=== PATIENT | male | born 1985 | race African-American/Black ===

== ENCOUNTER 2021-04-17 15:59 | Emergency (ER) | payer BC, SELFPAY ==
[2021-04-17 16:39] VITALS: BP 121/72; PULSE 58; RESP 18; TEMP 37.1; O2SAT 100; BMI 25.1
--- NOTE | 2021-04-17 18:49 | ED_ITS ---
HPI - Eye Problem General Chief complaint: Eye Problems Stated complaint: eye pain Time Seen by Provider: 04/17/21 18:49 Source: patient Mode of arrival: ambulatory Limitations: no limitations History of Present Illness HPI Narrative: 36-year-old male with a 3 day history of bilateral red watery eyes. Patient feels pressure in his eyes when he bends down. No headache, no pain with EOMs, no vomiting, no photophobia, no foreign body sensation, no eye trauma, no glasses, no contacts, no itchy eyes. Patient has been using Claritin and antihistamine [id number] eyedrops, it is not helping. 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 chief complaint: eye redness Onset (ago): day(s) (3) Onset description: gradual Duration: constant Location: both eyes Eye Symptoms: redness and pain Related Data Previous Rx's Medication Instructions Recorded erythromycin 5 mg/gram (0.5 %) eye 0.5 inch OPHTHALMIC (EYE) QID 5 04/17/21 ointment Days #3.5 g Allergies Allergy/AdvReac Type Severity Reaction Status Date / Time No Known Allergies Allergy Verified 04/17/21 16:39 Review of Systems Constitutional: Constitutional: Denies body ache(s), Denies chills, Denies fatigue, Denies fever(s), Denies headache(s), Denies malaise and Denies weakness Eyes: Eyes: Reports as per HPI, Denies change in vision, Denies diplopia, Reports dry eyes, Reports irritation, Denies itchy eyes, Denies loss of vision, Denies eye pain, Denies requires corrective lenses, Denies seeing flashes, Denies photophobia, Denies spots in vision and Denies tunnel vision ENT: Denies vertigo, Denies dizziness, Denies otalgia, Denies headache(s), Denies mouth pain, Denies post nasal drip, Denies sinus pain, Denies sinus pressure, Denies sore throat and Denies throat swelling Cardiovascular: Cardiovascular: Denies chest pain, Denies syncope, Denies leg edema, Denies lightheadedness, Denies Loss of Consciousness, Denies palpitations and Denies dyspnea Respiratory: Respiratory: Denies chest congestion, Denies cough and Denies dyspnea Gastrointestinal: Gastrointestinal: Reports abdominal pain, Denies hematochezia, Denies constipation, Denies diarrhea and Denies vomiting Neurologic: Denies confusion, Denies vertigo, Denies dizziness, Denies syncope, Denies headache(s), Denies loss of vision and Denies weakness Psychiatric: Psychiatric: Denies confusion Endocrine: Endocrine: Denies fatigue and Denies palpitations Allergic/Immunologic: Allergic/Immunologic: Denies itchy eyes and Denies throat swelling PMFSH Social History Social History Advance Directives: No Advance Directives Information Provided: No Physical Exam Vital Signs: Vital Signs: Last Vital Signs Temp 98.7 F 04/17/21 16:39 Pulse 58 04/17/21 16:39 Resp 18 04/17/21 16:39 BP 121/72 04/17/21 16:39 Pulse Ox 100 04/17/21 16:39 Body Mass Index 25.1 Const: General: healthy appearing, comfortable, no acute distress, alert and awake; No confusion Nutritional Appearance: well nourished Orientation/consciousness: patient oriented x3 and No confusion Limitations: no limitations HENMT: Head: Yes normal to inspection, Yes normocephalic and Yes atraumatic Ears: hearing grossly normal bilaterally Face and sinus: Yes normal facial exam Mouth: Normal oral and palatal mucosa present Throat: Yes posterior oropharynx normal Eyes: Other: Injected conjunctiva bilaterally No ciliary flush, no purulent discharge, no pain with EOMs, no hyphema, no hazy cornea, pupils react to light. IOP with tonopen shows 17-21 in right eye, and 21-23 in left eye. Fluorescein stain shows no corneal abrasion, no Sidel sign Visual Marshall: n ormal visual marshall by confrontation Alignment and Position: alignment normal Periorbital: periorbital findings normal Eyelids: Yes eyelids normal Conjunctivae: conjunctival abnormal bilateral conjunctival injection diffuse and diffuse Corneas: corneas normal and fluorescein used Pupils: Equal, round and reactive pupils present, Pupils normal by confrontation and Pupil accommodation reflex normal EOM: EOMs intact bilaterally Direct Ophthalmoscopy: normal light reflex, no photophobia and No photophobia Neck: Neck: Yes full ROM, Yes no meningeal signs and Yes supple Resp: Effort & Inspection: normal respiratory effort Auscultation: clear to auscultation bilaterally, no crackles, no rales, no rhonchi and no wheezes Cardio: Rate: regular rate Rhythm: regular rhythm Heart sounds: S1 normal heart sound present and S2 normal heart sound present Skin: General skin exam: no rashes or lesions noted Neuro: General: patient oriented x3, tone normal, moves all extremities, no meningeal signs, no focal motor deficits and No confusion Cranial nerves: Yes Equal, round and reactive pupils present Course Course Course Narrative: 36-year-old male with 3 days of injected conjunctiva. On exam, injected conjunctiva bilaterally with no ciliary flush, no purulent discharge, no pain with EOMs, no hyphema, no hazy cornea, pupils react to light. IOP with tonopen shows 17-21 in right eye, and 21-23 in left eye. Fluorescein stain shows no corneal abrasion, no Sidel sign Erythromycin ointment, follow-up with mentally impaired teacher, referred to Ophthalmology, gave patient return precautions. Discharge Plan Discharge Clinical Impression: Conjunctivitis Qualifiers: Conjunctivitis type: acute Acute conjunctivitis type: unspecified Laterality: bilateral Qualified Code(s): H10.33 - Unspecified acute conjunctivitis, bilateral Patient Disposition: Home, Self-Care Instructions: Conjunctivitis (ED) Additional Instructions: Please return to the emergency room if you have sudden blurry vision, vision loss, headaches, vomiting, fevers, or any other new or concerning symptoms. Please call Dr Horvath, mentally impaired teacher, at [phone] on Tuesday. Please fill your prescription for erythromycin ointment and use it 4 times a day in both eyes for next 5 days. Prescriptions: New erythromycin 5 mg/gram (0.5 %) ointment 0.5 inch ophthalmic (eye) QID 5 Days Qty: 3.5 RF: 0 Referrals: Kevin Horvath [Physician] - 2 days (Bilateral red eye)
[2021-04-17] MEDS: Tetracaine HCl/PF 0.5% Oph Sol 4 ML DROPS 3 DROP EYE-BOTH (20:32)
[2021-04-17] MEDS: Fluorescein Sodium STRIP 1 STRIP EYE-BOTH (20:33)
== END 2021-04-17 20:34 | disposition home or self-care (01) ==
PROVIDERS: Emergency Provider Emergency Medicine; PCP Family Medicine
DX: H10.33 Unspecified acute conjunctivitis, bilateral (principal)
CPT/HCPCS: 99282; 99283

== ENCOUNTER 2021-08-25 13:00 | Outpatient (REF) | payer BC, SELFPAY ==
[2021-08-25 16:00] LABS: Binax Internal Control QC Valid; Binax Lot number: 9864; Binax Now Covid-19 Ag Negative (Negative)
== END 2021-08-25 13:01 | disposition home or self-care (01) ==
LOC: HO.LAB 13:00
PROVIDERS: Visit Provider Internal Medicine
DX: Z20.822 Contact with and (suspected) exposure to COVID-19 (principal)
CPT/HCPCS: 36415

== ENCOUNTER 2021-11-11 13:38 | Emergency (ER) | payer BC, SELFPAY ==
[2021-11-11 13:59] VITALS: BP 115/73; PULSE 66; RESP 18; TEMP 36.8; O2SAT 98; BMI 27.3
--- NOTE | 2021-11-11 14:22 | ED.URI ---
HPI - URI/Sore Throat General Chief Complaint: Upper Respiratory Symptoms Stated Complaint: throat pain/diff breathing Time Seen by Provider: 11/11/21 14:11 Source: patient Mode of arrival: ambulatory Limitations: no limitations History of Present Illness HPI Narrative: 36 yo male here with one week of sore throat and nasal congestion. No cough or fever. Had covid in the last one month so is not concerned for COVID. Related Data Previous Rx's Medication Instructions Recorded erythromycin 5 mg/gram (0.5 %) eye 0.5 inch OPHTHALMIC (EYE) QID 5 04/17/21 ointment Days #3.5 g amoxicillin 500 mg tablet 500 mg PO BID #20 tab 11/11/21 ibuprofen 600 mg tablet 600 mg PO Q8H PRN #20 tab 11/11/21 Allergies Allergy/AdvReac Type Severity Reaction Status Date / Time No Known Allergies Allergy Verified 04/17/21 16:39 Review of Systems Review of Systems: Yes all other systems are reviewed and are negative Constitutional: Constitutional: Reports no additional constitutional complaints, Denies body ache(s), Denies chills, Denies fever(s), Denies headache(s) and Denies weakness Eyes: Eyes: Reports no additional eye complaints and Denies change in vision ENT: Reports system reviewed and no additional complaints, except as documented, Denies dizziness, Denies headache(s), Reports nasal congestion, Denies nasal discharge, Denies neck pain and Reports sore throat Cardiovascular: Cardiovascular: Reports no additional cardiovascular complaints, Denies chest pain, Denies leg edema and Denies dyspnea Respiratory: Respiratory: Reports no additional respiratory complaints, Denies cough and Denies dyspnea Gastrointestinal: Gastrointestinal: Reports no additional gastrointestinal complaints, Denies abdominal pain, Denies diarrhea, Denies nausea and Denies vomiting Genitourinary: Genitourinary: Denies urinary incontinence Musculoskeletal: Musculoskeletal: Reports no additional musculoskeletal complaints, Denies back pain, Denies arthralgias, Denies joint swelling, Denies neck pain, Denies numbness and Denies tingling Integumentary/Breasts: Skin/Breast: Reports system reviewed and no additional complaints, except as docu and Denies rash Neurologic: Reports system reviewed and no additional complaints, except as documented, Denies Abnormal speech present, Denies dizziness, Denies headache(s), Denies numbness, Denies tingling and Denies weakness REPLACED BY [facility] Past Medical History Attestation statement: The following information was validated with the patient. Source: old records reviewed and nursing notes reviewed Social History Social History Advance Directives: No Advance Directives Information Provided: No Physical Exam Vital Signs: Vital Signs: Last Vital Signs Temp 98.3 F 11/11/21 13:59 Pulse 66 11/11/21 13:59 Resp 18 11/11/21 13:59 BP 115/73 11/11/21 13:59 Pulse Ox 98 11/11/21 13:59 BMI result Body Mass Index 27.3 Const: General: cooperative, healthy appearing, comfortable and no acute distress Orientation/consciousness: patient oriented x3 Limitations: no limitations HEENT: Head: Yes normal to inspection Ears: hearing grossly normal bilaterally and TM's normal bilaterally General nose exam: Normal external nose present and Abnormal mucous membranes and turbinates present erythematous Face and sinus: Yes normal facial exam Mouth: Normal oral and palatal mucosa present Throat: Yes posterior oropharynx normal, Yes uvula midline and Yes abnormal tonsil (bilateral swelling/erythema/exudate) Eyes: General: appearance normal, both eyes and all related structures Pupils: Equal, round and reactive pupils present Neck: Neck: Yes normal visual inspection, Yes full ROM, Yes no lymphadenopathy and Yes no meningeal signs Chest: Chest palpation & inspection: normal inspection of the chest Resp: Effort & Inspection: normal respiratory effort Auscultation: clear to auscultation bilaterally Cardio: Rate: regular rate Rhythm: regular rhythm Peripheral pulses: Peripheral pulses 2+ throughout GI: Inspection: Yes normal to inspection Palpation (GI): Soft to palpation and nontender Auscultation: normal bowel sounds Back/Spine/Pelvis: Thoracic/Lumbar Spine: thoracic and lumbar spine normal to inspection Skin: General skin exam: no rashes or lesions noted Neuro: General: patient oriented x3, no meningeal signs, no focal motor deficits and normal sensation to monofilament Cranial nerves: Yes Equal, round and reactive pupils present Cognition (Neuro): normal cognition Speech: No Abnormal speech present Gait exam (Neuro): Normal gait present Motor exam (neuro): 5/5 motor strength present throughout Extrem: General: Yes normal to inspection Course Course Course Narrative: 36 yo male with one week sore throat/congestion. Bilateral tonsillar swelling/erythema/exudate on exam c/w with strep pharyngitis. Will check rapid strep 1440-rapid strep is negative. However, exam is consistent with strep pharyngitis. Will treat with course of antibiotics. Reviewed worrisome signs and symptoms of when to return to the emergency department. Comfortable discharge home. MDM - URI/Sore Throat Medical Records Attestation: I reviewed the patient's medical records. Lab Data Attestation: I reviewed the patient's lab results. Labs: Lab Results 11/11/21 Range/Units 14:23 S. pyogenes GrpA CHRIS Negative (Negative) Discharge Plan Discharge Clinical Impression: Pharyngitis Patient Disposition: Home, Self-Care Instructions: Pharyngitis (ED) Additional Instructions: Your test for strep was negative. However we are still going to treat you for strep pharyngitis with antibiotic Saltwater gargles Soft food. Motrin or Tylenol for pain as needed Prescriptions: New amoxicillin 500 mg tablet 500 mg PO BID Qty: 20 0RF ibuprofen 600 mg tablet 600 mg PO Q8H PRN (Reason: pain) Qty: 20 0RF No Action erythromycin 5 mg/gram (0.5 %) ointment 0.5 inch ophthalmic (eye) QID 5 Days Qty: 3.5 0RF Rx Instructions: Instill 1/2 inch ointment in both eyes 4 times a day for 5 days Referrals: Physician,Unknown J [Primary Care Provider] - 1 week
[2021-11-11 14:36] LABS: Strep A Nucleic Acid Negative (Negative)
== END 2021-11-11 14:45 | disposition home or self-care (01) ==
PROVIDERS: Nurse Practitioner Family; Emergency Provider Emergency Medicine
DX: J02.9 Acute pharyngitis, unspecified (principal); R06.02 Shortness of breath; Z79.899 Other long term (current) drug therapy
CPT/HCPCS: 36415; 87651; 99283

== ENCOUNTER 2022-03-17 11:47 | Emergency (ER) | payer BC, SELFPAY ==
[2022-03-17 12:08] VITALS: BP 112/60; PULSE 59; RESP 16; TEMP 36.7; O2SAT 98; BMI 25.8
--- NOTE | 2022-03-17 14:38 | ED_ITS ---
HPI - Skin/Abscess/Foreign Bdy General Chief complaint: Extremity Injury, Lower Stated complaint: Nail in R foot Time Seen by Provider: 03/17/22 13:47 Source: patient Mode of arrival: ambulatory Limitations: no limitations History of Present Illness HPI narrative: Patient presents emergency department for evaluation after stepping on a nail. He reports that he was working on something at home, when he began to step with his right foot onto a nail. He fell to began to puncture, and quickly removed his foot. He is uncertain of last tetanus shot. He states that he did visualize the entire nail afterwards, the not believe there is any part of the nail to be retained in his foot. Has some mild discomfort when walking. Related Data Previous Rx's Medication Instructions Recorded erythromycin 5 mg/gram (0.5 %) eye 0.5 inch ophthalmic (eye) QID 5 04/17/21 ointment days #3.5 grams amoxicillin 500 mg tablet 500 mg PO BID #20 tabs 11/11/21 ibuprofen 600 mg tablet 600 mg PO Q8H PRN pain #20 tabs 11/11/21 Allergies Allergy/AdvReac Type Severity Reaction Status Date / Time No Known Allergies Allergy Verified 03/17/22 12:08 Review of Systems Review of Systems: Skin: Positive puncture wound to right foot. Yes all other systems are reviewed and are negative PMFSH Past Medical History Attestation statement: The following information was validated with the patient. Source: old records reviewed Social History Social History Advance Directives: No Advance Directives Information Provided: No Physical Exam Vital Signs: Vital Signs: Last Vital Signs Temp 98.0 F 03/17/22 12:08 Pulse 59 03/17/22 12:08 Resp 16 03/17/22 12:08 BP 112/60 03/17/22 12:08 Pulse Ox 98 03/17/22 12:08 O2 Del Method 03/17/22 12:08 BMI result Body Mass Index 25.8 Appearance: Alert.?Oriented to person, place and time. No acute distress.?Normal affect. Neck: Normal inspection.? CVS: Heart sounds normal. Normal heart rate and rhythm.?? Respiratory: No respiratory distress.? Lung sounds clear to auscultation bilaterally?? Skin: Skin warm and dry.? Normal skin color.? Normal skin turgor.??Pinpoint erythematous puncture suleman to the ball of the plantar right foot at the base of the 2nd digit no surrounding erythema, swelling, or drainage. Extremities: No lower extremity edema.? Neuro: Moves all extremities spontaneously. Sensation intact bilaterally. No motor deficits Ambulates with normal steady gait. Course Course Course Narrative: Patient is a 36-year-old male who presents emergency department for evaluation after stepping on a nail. Tetanus vaccine was updated while in the emergency department. At this time no clinical suspicion for infectious process or retained foreign body. Discussed worsening signs and symptoms to have re- evaluated such as signs of infection, advised he may follow up with his primary care provider or be evaluated at an urgent care return back to the emergency department. All questions were answered, discharged home stable condition. Discharge Plan Discharge Clinical Impression: Puncture wound of foot Patient Disposition: Home, Self-Care Additional Instructions: You were evaluated in the emergency department after stepping on a nail with the right foot. Your tetanus vaccine was updated here today. If you develop redness, swelling, drainage, pain you should be re-evaluated, you may need antibiotics for possible infection. Feel free to follow-up with your primary care provider, at an urgent care, or in the emergency department as necessary. Prescriptions: No Action erythromycin 5 mg/gram (0.5 %) ointment 0.5 inch ophthalmic (eye) QID 5 Days Qty: 3.5 0RF Rx Instructions: Instill 1/2 inch ointment in both eyes 4 times a day for 5 days amoxicillin 500 mg tablet 500 mg PO BID Qty: 20 0RF ibuprofen 600 mg tablet 600 mg PO Q8H PRN (Reason: pain) Qty: 20 0RF Interventions: ED Discharge Assessment Last Done: 03/17/22 14:56 Discharge Date/Time: 03/17/22 14:56
[2022-03-17] MEDS: Diphth,Pertus(ACell),Tet Adult 0.5 ML SYRINGE IM (14:52)
== END 2022-03-17 14:56 | disposition home or self-care (01) ==
PROVIDERS: Emergency Provider Emergency Medicine
DX: S91.331A Puncture wound without foreign body, right foot, initial encounter (principal); W45.0XXA Nail entering through skin, initial encounter; Y93.89 Activity, other specified; Y92.019 Unspecified place in single-family (private) house as the place of occurrence of the external cause; Y99.9 Unspecified external cause status
CPT/HCPCS: 90471; 90715; 99282; 99284